=== PATIENT | male | born 1950 | race Caucasian/White ===

== ENCOUNTER → 2021-02-24 | Outpatient (CLI) | payer MEDICARE, OTHER ==
--- NOTE | 2021-02-24 21:09 | RAD ---
Exam:Left ribs with PA chest Date: 02/24/2021 12:00 AM Comparison: No prior Indication: Reason: left rib pain Findings/ Impression: The heart is not enlarged. Mediastinal and hilar contours are normal. No focal parenchymal airspace o pacity. No pleural effusion or pneumothorax. AP, Oblique and Spot images of the left ribs are negative for acute displaced rib fracture. Negative focal pleural elevation. Symmetrical intercostal spacing. It is of note that an acute non-displaced rib fracture can be in-apparent on initial post-trauma imag ing. Electronically signed by: Dhiraj Richey MD (02/24/2021 9:07 PM) [id number]
== END ==
LOC: RAD 17:38
PROVIDERS: ATTEND Nurse Practitioner Family
DX: R07.81 Pleurodynia (principal)
CPT/HCPCS: 71101